=== PATIENT | male | born 1930 | race Caucasian/White ===

== ENCOUNTER 2016-07-28 14:53 | Emergency (ER) | payer MEDICARE, MEDICAID ==
[~2016-07-28] VITALS: Ht 172.7 cm; Wt 72.6 kg
[~2016-07-28 14:53] MED LIST: ADV250INH INH; ASPI1TAB PO; ATOR40TA75 PO; CARV12.5 PO; COLC1TAB14 PO; FERR1TAB8 PO; INSUHUMDS SC; INSULANT SC; LEVA1TAB2 PO; LEVO100T5 PO; MAGN400T5 PO; MIRA3350 PO; NITR4TASL SL; PRIL20CA9 PO; SPIR1CAP INH; TYLE325T5 PO; VITA-121 PO; VITMTA PO; ZOLO50TA PO; ZYLO300T4 PO
[2016-07-28] MEDS ORDERED: TORS20TA2 (15:17)
[2016-07-28] MEDS ORDERED: ADV250INH INH (15:17)
[2016-07-28] MEDS ORDERED: VITA2000 PO (15:17)
[2016-07-28] MEDS ORDERED: PANT40TA2 PO (15:17)
[2016-07-28] MEDS ORDERED: NS 500 ML IV ONE (16:00)
[2016-07-28] MEDS ORDERED: TETANUS/DIPHTHERIA TOX ADSORB ADULT 0.5ML SYR/VIAL (90714) IM ONE (16:00)
[2016-07-28 16:33] LABS: BASO % 0.5 % (0.0-1.0); EOS # 0.3 K/mm3 (0.0-0.50); EOS % 4.1 % (0.0-3.0); LARGE UNSTAINED CELL # 0.1 K/mm3 (0.0-0.4); LARGE UNSTAINED CELL % 1.5 % (0.0-4.0); LYMPH # 1.2 K/mm3 (1.5-4.5); LYMPH % 13.3 % (24.0-44.0); MEAN CORPUSCULAR HEMOGLOBIN 33.4 pg (27.0-33.0); MEAN CORPUSCULAR HGB CONC 34.1 g/dl (32.0-36.5); MEAN CORPUSCULAR VOLUME 97.8 fl (80.0-96.0); MONO # 0.4 K/mm3 (0.0-0.8); MONO % 5.2 % (0.0-5.0); NEUTROPHILS # 6.1 K/mm3 (1.8-7.7); NEUTROPHILS % 75.5 % (36.0-66.0); RED CELL DISTRIBUTION WIDTH 15.1 % (11.5-14.5); WHITE BLOOD COUNT 8.1 K/mm3 (4.0-10.0)
[2016-07-28 16:34] LABS: INR 1.2
[2016-07-28 16:52] LABS: ALBUMIN 3.7 GM/DL (3.2-5.2); AMYLASE 24 U/L (25-115); ANION GAP 6 MEQ/L (8-16); BLOOD UREA NITROGEN 30 MG/DL (7-18); CARBON DIOXIDE LEVEL 30 MEQ/L (21-32); CHLORIDE LEVEL 107 MEQ/L (98-107); GLUCOSE, FASTING 213 MG/DL (83-110); MAGNESIUM LEVEL 1.7 MG/DL (1.8-2.4); POTASSIUM SERUM 4.1 MEQ/L (3.5-5.1); SODIUM LEVEL 143 MEQ/L (136-145)
[2016-07-28 16:54] LABS: PLATELET COUNT, AUTOMATED 84 k/mm3 (150-450)
[2016-07-28 16:55] LABS: ALBUMIN/GLOBULIN RATIO 1.37 (1.00-1.93); ALKALINE PHOSPHATASE 131 U/L (45-117); ALT/SGPT 29 U/L (12-78); AST/SGOT 22 U/L (15-37); BILIRUBIN,DIRECT 0.3 MG/DL (0.0-0.2); CREATININE FOR GFR 1.56 MG/DL (0.70-1.30); GLOMERULAR FILTRATION RATE 45.1 (>35); TOTAL PROTEIN 6.4 GM/DL (6.4-8.2)
[2016-07-28] MEDS: MORPHINE 2 MG/ML 1ML SYRINGE IV PRN ×3 (17:00→18:20)
[2016-07-28 17:03] LABS: METHADONE URINE NEGATIVE (NEGATIVE)
[2016-07-28] MEDS ORDERED: NS 1,000 ML IV SCH (17:15)
[2016-07-28 19:50] VITALS: BP 155/67
--- NOTE | 2016-07-29 07:27 | REP ---
CT STUDY OF THE BRAIN WITHOUT CONTRAST: HISTORY: Trauma. Comparison study: November 22, 2014. FINDINGS: Digital lateral blasting worker radiograph and bone window settings demonstrate an intact bony calvarium. No skull fracture is appreciated. Visualized paranasal sinuses are clear. No intraorbital abnormality is seen. On soft tissue window settings there is moderate diffuse cerebral atrophy. There is an old area of encephalomalacia in the right frontal lobe laterally consistent with an old infarction. This is unchanged. There is no evidence of intracranial hemorrhage. No extra-axial fluid collection is seen. No mass, acute infarct, or midline shift is seen. IMPRESSION: Diffuse moderate atrophy. Vascular calcification. Old right frontal lobe infarct. No acute intracranial abnormality. No skull fracture seen. Signed by Zachary Vicente MD 07/29/2016 08:25 A
--- NOTE | 2016-07-29 07:28 | REP ---
CT STUDY OF THE CERVICAL SPINE WITHOUT CONTRAST: HISTORY: Trauma. TECHNIQUE: Helical scanning is acquired and overlapping 2 mm high resolution axial images were generated and reviewed at bone and soft tissue window settings. Coronal and sagittal multiplanar re-formations images are generated. CT FINDINGS: There is no evidence of cervical spine element fracture. No skull base fracture is seen. Cervical vertebral body heights are preserved. Alignment is normal. Facet joints are normally aligned bilaterally at each cervical level on multiplanar re-formations images. There is no evidence of intraspinal or paraspinal hematoma. No extra vertebral abnormality is seen. There are degenerative spondylosis changes. The C5-6 disc shows fusion. IMPRESSION: Degenerative spondylosis changes. Acquired fusions C5-6 disc noted incidentally. Otherwise unremarkable CT study of the cervical spine without contrast. No fracture seen. Signed by Zachary Vicente MD 07/29/2016 08:25 A
--- NOTE | 2016-07-29 07:41 | REP ---
Right ankle series: Two views. History: Injury in a fall. Findings: AP and lateral views of the right ankle are presented. There is some anterior soft tissue swelling. There is Achilles and plantar calcaneal spurring. Vascular calcification is seen. No fracture is seen. Impression: No fracture noted on this limited ankle series. Signed by Zachary Vicente MD 07/29/2016 08:28 A
--- NOTE | 2016-07-29 07:41 | REP ---
PORTABLE CHEST X-RAY: Single view. HISTORY: Trauma. COMPARISON STUDY: November 22, 2014. 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 Mild to moderate cardiomegaly is observed unchanged. Left coronary artery stent material is visible. The lungs are symmetrically aerated and free of infiltrate. Pulmonary vasculature is not increased on this supine chest x-ray. IMPRESSION: Cardiomegaly with pacemaker and coronary artery stent material. Otherwise no acute disease. Signed by Zachary Vicente MD 07/29/2016 08:28 A
--- NOTE | 2016-07-29 07:42 | REP ---
RIGHT TIB/FIB SERIES: Three views. HISTORY: Injury in a fall. FINDINGS: There is fairly prominent vascular calcification. Chondrocalcinosis is noted at the knee. No TIB/fib fracture is seen. IMPRESSION: No fracture noted. Signed by Zachary Vicente MD 07/29/2016 08:28 A
--- NOTE | 2016-07-29 07:43 | REP ---
RIGHT ELBOW SERIES: Four views. HISTORY: Trauma. FINDINGS: Four views right elbow demonstrate soft tissue swelling and some dressing artifact over the olecranon. There is minimal olecranon process spurring. No fracture, subluxation or joint effusion is evident. There is vascular calcification. IMPRESSION: Lolis-olecranon process soft tissue swelling and spurring. No fracture or other acute abnormality. Signed by Zachary Vicente MD 07/29/2016 08:28 A
--- NOTE | 2016-07-29 07:48 | REP ---
LEFT FOREARM: Three views. HISTORY: Trauma. FINDINGS: There is soft-tissue swelling with an overlying dressing or clothing artifact in the proximal forearm. Vascular calcification is observed. No forearm fracture is seen. Proximal ulnar spurring is noted. There are two tiny densities in the dorsal soft tissues of the forearm which could be opaque debris. IMPRESSION: Question opaque debris at the dorsal soft tissues of the proximal forearm. No fracture seen. Signed by Zachary Vicente MD 07/29/2016 08:28 A
--- NOTE | 2016-07-29 08:01 | REP ---
Bilateral hips with pelvis: Five views. History: Trauma. Findings: AP view of the pelvis demonstrates a intertrochanteric right hip fracture. The patient is status post aortobi-iliac stent graft. There is some diffuse osteopenia. No pelvic or sacral fracture is seen. No left hip fracture is noted. Multiple views of the left and right hip confirm the presence of a intertrochanteric fracture of the right hip with mild varus. Vascular calcification is noted. No left hip fracture is seen. Impression: Intertrochanteric right hip fracture and mild varus. Signed by Zachary Vicente MD 07/29/2016 08:29 A
--- NOTE | 2016-07-30 08:59 | ECGEPIP ---
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
--- NOTE | 2016-07-30 16:40 | ED PDOC ---
Post-Departure Follow-Up asked by melvina trejo to contact [facility] pt [facility]. apparently ecg obtained in ed was inadvertently labeled helen rodríguez. this was validated by [facility]. i spoke to dr bunch in ICU at [place] and relayed incident. I then faxed to her ecg with corrected name. she is aware. Adam Linda MD Jul 30, 2016 16:40
== END 2016-07-28 19:58 | disposition short-term general hospital (02) ==
LOC: EDBD 14:53 → M ED 17:14
DX: S72.144A Nondisplaced intertrochanteric fracture of right femur, initial encounter for closed fracture (principal); S51.812A Laceration without foreign body of left forearm, initial encounter; I10 Essential (primary) hypertension; J44.9 Chronic obstructive pulmonary disease, unspecified; E11.9 Type 2 diabetes mellitus without complications; Z87.891 Personal history of nicotine dependence; W01.198A Fall on same level from slipping, tripping and stumbling with subsequent striking against other object, initial encounter; Y92.513 Shop (commercial) as the place of occurrence of the external cause; Y93.01 Activity, walking, marching and hiking; Y99.9 Unspecified external cause status
CPT/HCPCS: 51703; 70450; 71010; 72125; 73080; 73090; 73521; 73590; 73610; 80048; 80076; 80306; 81001; 82150; 82550; 82553; 83605; 83690; 83735; 84484; 85025; 85610; 85730; 86850; 86900; 86901; 90471; 90714; 93005; 93041; 94760; 96374; 99285; G0480